=== PATIENT | male | born 2005 | race African-American/Black ===

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

== ENCOUNTER 2025-05-19 18:55 | Emergency (ER) | payer MEDICAID ==
[~2025-05-19] VITALS: Ht 190.5 cm; Wt 160.0 kg
[~2025-05-19 18:55] MED LIST changes: +ALBU18HF2 IH
[2025-05-19 18:57] VITALS: O2SAT 99
[2025-05-19 19:00] VITALS: BP 128/88; PULSE 97; RESP 18; TEMP 36.8; O2SAT 100
== END 2025-05-19 20:45 | disposition left against medical advice (07) ==
LOC: ER 18:55
DX: R07.89 Other chest pain (principal); R06.02 Shortness of breath; J45.909 Unspecified asthma, uncomplicated
CPT/HCPCS: 71045; 93005; 99283